=== PATIENT | female | born 1995 | race Asian ===

== ENCOUNTER 2019-03-28 02:16 | Emergency (ER) | payer OTHER ==
[~2019-03-28] VITALS: Ht 154.9 cm; Wt 74.8 kg
[2019-03-28 03:43] VITALS: BP 122/79; TEMP 97.5
== END 2019-03-28 03:44 | disposition home or self-care (01) ==
LOC: ED 02:16
DX: J45.901 Unspecified asthma with (acute) exacerbation (principal)
CPT/HCPCS: 87502; 94664; 96372; 99283; J2930

== ENCOUNTER 2019-04-06 19:25 | Emergency (ER) | payer OTHER ==
[~2019-04-06] VITALS: Ht 154.9 cm; Wt 74.8 kg
[2019-04-06 21:20] VITALS: BP 139/93; TEMP 98.1
== END 2019-04-06 21:20 | disposition home or self-care (01) ==
LOC: ED 19:25
DX: J45.909 Unspecified asthma, uncomplicated (principal); J06.9 Acute upper respiratory infection, unspecified; F17.210 Nicotine dependence, cigarettes, uncomplicated
CPT/HCPCS: 87502; 94664; 96372; 99282; 99283; J2930

== ENCOUNTER 2021-06-23 02:09 | Emergency (ER) | payer OTHER ==
[~2021-06-23] VITALS: Ht 154.9 cm; Wt 79.4 kg
[2021-06-23 03:06] LABS: PLATELET COUNT 230 K/uL (152-353)
[2021-06-23 03:31] LABS: POTASSIUM 3.6 mmol/L (3.6-5.2)
[2021-06-23 04:08] VITALS: BP 112/70; TEMP 98.1
== END 2021-06-23 04:08 | disposition home or self-care (01) ==
LOC: ED 02:09
PROVIDERS: Hospitalist
DX: J45.901 Unspecified asthma with (acute) exacerbation (principal); Z3A.18 18 weeks gestation of pregnancy; Z20.822 Contact with and (suspected) exposure to COVID-19
CPT/HCPCS: 80048; 80307; 80320; 81000; 85027; 87635; 87651; 93005; 94664; 96372; 99283; J2930; U0003